=== PATIENT | male | born 1965 | race Hispanic/Latino ===

== ENCOUNTER 2022-08-06 12:29 | Day surgery (SDC) | payer MEDICARE, OTHER ==
[2022-08-06] VITALS (9 sets, daily range): BP systolic 85–112; BP diastolic 47–61
[2022-08-06] MEDS ORDERED: LIDOCAINE HCL-MPF 2% 10ML AMP IJ ONE (13:38)
[2022-08-06] MEDS ORDERED: IODIXANOL 320 MG/ML 100 ML VIAL ONE (13:38)
== END 2022-08-06 16:30 | disposition home or self-care (01) ==
LOC: DAH 12:29 → 2BH 12:29 → DAH 12:30
PROVIDERS: ATTEND Internal Medicine
DX: N13.39 Other hydronephrosis (principal); I10 Essential (primary) hypertension; E11.9 Type 2 diabetes mellitus without complications; J44.9 Chronic obstructive pulmonary disease, unspecified; G47.33 Obstructive sleep apnea (adult) (pediatric); I48.91 Unspecified atrial fibrillation; Z72.89 Other problems related to lifestyle; Z79.899 Other long term (current) drug therapy; Z95.1 Presence of aortocoronary bypass graft; Z79.01 Long term (current) use of anticoagulants
CPT/HCPCS: 47490; C1894; C1729; J1644; J3490; Q9967; 10030; G0378